=== PATIENT | female | born 1960 | race Caucasian/White ===

== ENCOUNTER → 2023-12-29 07:36 | Outpatient (REF) | payer OTHER, SELFPAY | LOC: WDC 07:36 | PROVIDERS: ATTENDING PHYSICIAN Internal Medicine | DX: M79.622 Pain in left upper arm (principal); N64.4 Mastodynia | CPT/HCPCS: 76642 ==

== ENCOUNTER → 2024-02-25 09:43 | Outpatient (REF) | payer OTHER, SELFPAY | LOC: HWRAD 09:43 | PROVIDERS: ATTENDING PHYSICIAN Physician Assistant Medical; FAMILY PHYSICIAN Internal Medicine | DX: R31.0 Gross hematuria (principal) | CPT/HCPCS: 74178; Q9967 ==

== ENCOUNTER 2024-10-19 13:12 | Emergency (ER) | payer OTHER, SELFPAY ==
[2024-10-19 13:12] VITALS: BMI 27.8
[2024-10-19 13:18] VITALS: BP 156/88
--- NOTE | 2024-10-19 13:23 | ED.GENMED ---
ED Provider Triage
<Kamilla Anaya PA-C - Last Filed: 10/19/24 13:27>
-
Patient seen by provider in Triage?: Seen in Triage
Attestation: A medical screening examination has been initiated by a qualified medical provider. Based on the assessment performed at this time, it has been determined that an emergent medical condition may exist and the patient has been informed
that further medical evaluation and possible additional diagnostic testing may be needed.
HPI: 63yoF here with heartburn x several weeks. Constant for the past week. C/o slight pressure in chest. L shoulder blade started a few days ago and tingling in L arm.
GENERAL: Alert , in no apparent distress
EYE: No visual abnormalities.
NECK: Trachea midline
ENT: No visible abnormalities.
LUNGS: No acute respiratory distress
NEUROLOGICAL: Alert and oriented
SKIN: Skin intact. No visible changes.
MUSCULOSKELETAL: Moving extremities normally
PSYCH: Normal and appropriate interaction.
This is a medical evaluation conducted in person to initiate diagnostic evaluation and provide initial therapeutics. Please see further documentation by the treating clinician.
Cardiac labs, lipase, EKG, and CXR ordered.
History of Present Illness
<Kamilla Anaya PA-C - Last Filed: 10/19/24 13:27>
General
Chief Complaint: Chest Pain
Time Seen by Provider: 10/19/24 15:38
<Alvaro Anand PA-C - Last Filed: 10/19/24 18:14>
General
Source: patient
Exam Limitations: none
History of Present Illness
History of Present Illness:
63-year-old female with history of GERD presents with ongoing chest burning over the past several weeks. She has been using Pepcid which has been helping. However yesterday she developed left arm tingling associated with her chest discomfort. She
has been belching a lot. She denies any abdominal pain. She does have a history of Gilbert syndrome. She denies any recent surgeries leg swelling calf pain or travel. The pain is slightly reproducible with deep breathing. She denies shortness of
breath. She states since waiting in the waiting room her symptoms have mostly resolved. No other complaints at this time
Past History
<Kamilla Anaya PA-C - Last Filed: 10/19/24 13:27>
Past History
ED Past Medical History: Cancer (Uterine cancer, rectal cancer, Gilbert syndrome), HTN and Hypercholesterolemia
ED Past Surgical History: Gynecological (AHMET/BSO) and Other (Trans-anal resection of stage I rectal cancer ([facility]))
Social History
Tobacco: Non-smoker
Personal:
Phy Exam
<Alvaro Anand PA-C - Last Filed: 10/19/24 18:14>
Physical Exam
Physical Exam:
General: Well-appearing female no acute respiratory distress
HEENT: Normocephalic atraumatic neck is supple heart: Regular rate and rhythm no murmurs
Lungs: Clear no wheeze
Abdomen is soft nontender nondistended no guarding rebound normal bowel sounds
Extremities: No cyanosis
Scores
<Alvaro Anand PA-C - Last Filed: 10/19/24 18:14>
Heart Score for Chest Pain Patients
STEMI patient?: No
History: Slightly or Non-Suspicious
ECG: Normal
Age: >45 - <65 years
Risk Factors: No Risk Factors
Troponin: </= Normal Limit
Heart Score for Chest Pain Patients: 1
Heart Score Risk: 2.5% MACE over next 6 weeks
Course
<Kamilla Anaya PA-C - Last Filed: 10/19/24 13:27>
Orders/Labs/Results
Orders:
Orders
10/19/24 13:12
EKG [Electrocardiogram (*1)] Urgent
Reason for Study: Chest Pain
10/19/24 13:13
EKG- Treatment ONCE
10/19/24 13:27
CR Chest - 2 Views Urgent
Comment:
Reason For Exam: CP
10/19/24 13:35
CMP [Comprehensive Metabolic Panel] Urgent
Complete Blood Count/With Diff Urgent
Lipase Urgent
Troponin I Urgent
10/19/24 15:58
D-Dimer Urgent
Abnormal Lab Results
10/19/24
13:35
MPV 10.5 H fL
(7.4-10.4)
BUN 21 H mg/dl
(7-17)
Glucose 105 H mg/dl
(70-99)
10/19/24 13:35
10/19/24 13:35
Vital Signs
Initial and Last Documented VS:
Initial Vital Signs
Temp Pulse Resp BP Pulse Ox
98.1 F 82 16 156/88 98
10/19/24 13:18 10/19/24 13:18 10/19/24 13:18 10/19/24 13:18 10/19/24 13:18
Last Documented Vital Signs
Temp Pulse Resp BP Pulse Ox
98.1 F 66 16 140/84 98
10/19/24 13:18 10/19/24 17:45 10/19/24 18:00 10/19/24 17:16 10/19/24 17:45
<Alvaro Anand PA-C - Last Filed: 10/19/24 18:14>
Orders/Labs/Results
Orders:
Orders
10/19/24 13:12
EKG [Electrocardiogram (*1)] Urgent
Reason for Study: Chest Pain
10/19/24 13:13
EKG- Treatment ONCE
10/19/24 13:27
CR Chest - 2 Views Urgent
Comment:
Reason For Exam: CP
10/19/24 13:35
CMP [Comprehensive Metabolic Panel] Urgent
Complete Blood Count/With Diff Urgent
Lipase Urgent
Troponin I Urgent
10/19/24 15:58
D-Dimer Urgent
Abnormal Lab Results
10/19/24
13:35
MPV 10.5 H fL
(7.4-10.4)
BUN 21 H mg/dl
(7-17)
Glucose 105 H mg/dl
(70-99)
10/19/24 13:35
10/19/24 13:35
Vital Signs
Initial and Last Documented VS:
Initial Vital Signs
Temp Pulse Resp BP Pulse Ox
98.1 F 82 16 156/88 98
10/19/24 13:18 10/19/24 13:18 10/19/24 13:18 10/19/24 13:18 10/19/24 13:18
Last Documented Vital Signs
Temp Pulse Resp BP Pulse Ox
98.1 F 66 16 140/84 98
10/19/24 13:18 10/19/24 17:45 10/19/24 18:00 10/19/24 17:16 10/19/24 17:45
<Alvaro Anand PA-C - Last Filed: 10/19/24 18:14>
MDM/Problems Addressed
Differential Diagnosis Includes:
Left scapular pain occasionally radiates to the arm. She feels that occasionally deep breathing. This has been relieved in the recent past with Pepcid however it was not helping. She does note some improvement since waiting in the waiting
appointment. Vital signs are stable. Consider musculoskeletal discomfort versus ACS versus PE. EKG shows sinus rhythm. Troponin ordered through triage undetectable which I expect to be elevated if this were cardiac as duration of symptoms have
been ongoing. Given history of Gilbert syndrome D-dimer pending.
<Alvaro Anand PA-C - Last Filed: 10/19/24 18:14>
*Critical Care Note
Total Time (30-74mins, 75-104mins- exclusive of procedures): Not Applicable
<Alvaro Anand PA-C - Last Filed: 10/19/24 18:14>
Update Note
Update Note:
D-dimer within normal limits chest x-ray clear patient continues to feel better without any symptoms. Suspect chest is likely related to her reflux. She will continue her Pepcid. She has an appointment with GI in the near future for an endoscopy
and colonoscopy. Will tie in cardiology team with discharge as well
ED Attending Note
<Kamilla Anaya PA-C - Last Filed: 10/19/24 13:27>
-
Portions of this chart may have been created with voice recognition software.� Occasional wrong word or��sound alike� substitutions may have occurred due to the inherent limitations of voice recognition software.
Discharge Plan
Departure
Patient Disposition: Home (Routine Discharge)
Date of Disposition: 10/19/24
Time of Disposition: 18:14
Patient with high blood pressure during this ER visit?: No
Discharge Problem:
Chest pain
Instructions: Acid Reflux and GERD in Adults (DC), Chest Pain DCA Follow Up
Prescriptions:
No Action
multivitamin [Multi-Day] 1 EACH tablet
1 tab PO DAILY
atorvastatin 10 MG tablet
10 mg PO DAILY
aspirin [Ecotrin Low Strength] 81 MG tablet,delayed release (DR/EC)
81 mg PO DAILY
cholecalciferol (vitamin D3) [Vitamin D3] 1,000 UNIT capsule
1,000 unit PO DAILY
Calcium Citrate +Vit D3 Tablet
1 tab PO DAILY
Lovaza
1 g PO DAILY
Triamterene-Hctz 37.5-25 mg Tb
1 tab PO DAILY
Referrals:
Herlinda Aragon MD [Family Provider] -
Activity Restrictions/Additional Instructions:
Continue current medicines. Follow-up with your doctor and cardiology. Return if worse otherwise
Interventions
Interventions:
*Risk Screen - Suicide Last Done: 10/19/24 13:18
*General Assessment Last Done: 10/19/24 17:49
*Neglect/Abuse Screening Last Done: 10/19/24 13:18
ED- Fall Risk Assessment Last Done: 10/19/24 17:49
*ED COVID-19 Vaccine History Last Done: 10/19/24 17:49
ED- Cardiac Assessment Last Done: 10/19/24 17:49
Discharge Date and Time
Print Language: BERMUDIAN
[2024-10-19 13:47] LABS: % Basophils 0.7 % (0-2); % Eosinophils 1.3 % (0-6); % Immature Granulocytes 0.4 % (0-0.5); % Lymphocytes 30.4 % (20.5-51.1); % Monocytes 6.5 % (1.7-9.3); % Neutrophils 60.7 % (42.2-75.2); Absolute Basophils 0.1 10^3/uL (0-0.2); Absolute Eosinophils 0.1 10^3/uL (0-0.7); Absolute Lymphocytes 2.3 10^3/uL (1.2-3.4); Absolute Monocytes 0.5 10^3/uL (0.1-0.6); Absolute Neutrophils 4.5 10^3/uL (1.4-6.5); Hematocrit 40.2 % (37.0-47.0); Hemoglobin 13.6 g/dL (12.0-16.0); Mean Corp Hgb Conc. 33.8 g/dL (33.0-37.0); Mean Corpuscular Volume 82.7 fL (81.0-99.0); Mean Platelet Volume 10.5 fL (7.4-10.4); Nucleated Red Blood Cells % 0 %; Platelet Count 299 10^3/uL (130-400); Red Blood Cell Count 4.86 10^6/uL (4.20-5.40); Red Cell Dist. Width 12.4 % (11.5-14.5); White Blood Cell Count 7.4 10^3/uL (4.8-10.8)
[2024-10-19 13:54] LABS: ALT (SGPT) 20 U/L (0-35); AST (SGOT) 23 U/L (14-36); Albumin 4.8 g/dl (3.5-5.0); Alkaline Phosphatase 70 U/L (38-126); Blood Urea Nitrogen 21 mg/dl (7-17); Calcium 9.5 mg/dl (8.4-10.2); Carbon Dioxide 30 mmol/L (22-30); Chloride 100 mmol/L (98-107); Glucose 105 mg/dl (70-99); Lipase 39 U/L (23-300); Potassium 3.7 mmol/L (3.5-5.1); Sodium 138 mmol/L (135-145); Total Bilirubin 0.5 mg/dl (0.2-1.3); Total Protein 7.1 g/dl (6.3-8.2); eGFR > 60.00
[2024-10-19 14:06] LABS: Troponin I < 0.012 ng/ml
[2024-10-19 16:24] LABS: D-Dimer 0.37 ug/mlFEU (0.00-0.50)
[2024-10-19 17:16] VITALS: BP 140/84
[2024-10-19 18:00] VITALS: BP 150/77
== END 2024-10-19 18:22 | disposition home or self-care (01) ==
LOC: EMR 13:12
PROVIDERS: Emergency Medicine; Physician Assistant; EMERGENCY PHYSICIAN Emergency Medicine; FAMILY PHYSICIAN Internal Medicine
DX: R07.89 Other chest pain (principal); R20.2 Paresthesia of skin; R12 Heartburn; K21.9 Gastro-esophageal reflux disease without esophagitis; Z15.09 Genetic susceptibility to other malignant neoplasm; I10 Essential (primary) hypertension; E78.00 Pure hypercholesterolemia, unspecified; Z85.048 Personal history of other malignant neoplasm of rectum, rectosigmoid junction, and anus; Z85.42 Personal history of malignant neoplasm of other parts of uterus; Z79.82 Long term (current) use of aspirin; Z88.8 Allergy status to other drugs, medicaments and biological substances
CPT/HCPCS: 99283; 71046; 80053; 83690; 84484; 85025; 85379; 93005

== ENCOUNTER → 2025-03-07 14:43 | Outpatient (REF) | payer OTHER, SELFPAY | LOC: HWRAD 14:43 | PROVIDERS: ATTENDING PHYSICIAN Physician Assistant Medical; FAMILY PHYSICIAN Internal Medicine; REFERRING PHYSICIAN Urology | DX: N28.89 Other specified disorders of kidney and ureter (principal) | CPT/HCPCS: 76775 ==